=== PATIENT | male | born 1975 | race Caucasian/White ===

== ENCOUNTER → 2019-05-23 | Outpatient (CLI) | payer SELFPAY ==
[~2019-05-23] MED LIST: GADOBENATE DIMEGLUMINE 1 ML IV ONE
--- NOTE | 2019-05-23 17:56 | Diagnostic Imaging Report ---
Examination: MRI SPINE THORACIC WITHOUT CONTRAST History: Mid back pain without radiation. Comparison studies: None Technique: Sagittal T1 and STIR; axial, sagittal and coronal T2 Intravenous contrast: None. Findings: Alignment: Normal kyphosis. No scoliosis. Thoracic cord: Normal in signal and morphology. The tip of the conus is at T12-L1. Soft tissues: No T2 hyperintense inflammatory changes. Paraspinal muscles: Preserved. No volume loss. Vertebrae: No compression fractures, infection or neoplasm. There are hemangiomata demonstrated in the T3, T5, T7, T9, T11 vertebrae. The largest is seen in the anterior T5 vertebral body, measuring 1.8 x 1.0 x 1.2 cm (superoinferior x anteroposterior x transverse dimensions). Degenerative changes: Disc spaces:Moderately narrowed at T8-T9. Facets: Intact. Spinal canal:Patent. No stenosis. Foramina:Patent. Disc bulge or herniations:Tiny central disc protrusion at T8-T9 with annular fissure. IMPRESSION: 1. Nonaggressive hemangiomata, as detailed above. 2. Tiny central disc protrusion at T8-T9 with annular fissure. No canal or foraminal stenosis. Signed by: Dr. Tracy Francisco M.D. on 05/23/2019 5:53 PM
--- NOTE | 2019-05-23 18:27 | Diagnostic Imaging Report ---
Examination: MRI BRAIN WITHOUT AND WITH CONTRAST History: Left ear tinnitus. Comparison studies: None Technique: Pre-contrast: Sagittal T2; axial T1, GRE or SWI, DWI, T2 FLAIR Post-contrast: axial and coronal T1. Pre-and post axial T1, post contrast coronal T1 and, axial 3-D T2 through the internal auditory canals with sagittal oblique and coronal reconstructions. Intravenous contrast: 17 mL MultiHance. Findings: Scalp: No abnormal signal. No masses. Bone marrow: Normal in signal intensity. Brain volume: Adequate for age. No volume loss. Ventricles: Normal in size and configuration. No hydrocephalus. Parenchyma: No masses, hemorrhage, or acute or chronic vascular insults. Posterior fossa: Cerebellar hemispheres: Normal in signal intensity and symmetric. Brainstem: No signal abnormalities. Cerebellopontine angle cisterns: Clear. No masses. Internal auditory canals: Symmetric. No masses. No abnormal enhancement. Extra-axial spaces: No lesion, fluid collection or hematoma. Enhancement: No abnormal enhancement. Suprasellar and sellar region: No abnormalities. Craniocervical junction: No abnormalities. The foramen magnum is patent. No Chiari malformations. Vessels: Normal flow-voids in the arteries and sinuses. Additional findings:None. IMPRESSION: No intracranial abnormalities. No abnormalities of the internal auditory canals or labyrinth. Signed by: Dr. Tracy Francisco M.D. on 05/23/2019 6:24 PM
== END ==
LOC: MRI 16:19
PROVIDERS: ATTEND Family Medicine
DX: H93.12 Tinnitus, left ear (principal); M54.6 Pain in thoracic spine; M51.24 Other intervertebral disc displacement, thoracic region
CPT/HCPCS: 70553; 72146; A9577